=== PATIENT | male | born 1960 | race Caucasian/White ===

== ENCOUNTER 2024-04-02 08:13 | Day surgery (SDC) | payer OTHER, MEDICARE ==
[2024-03-30 08:33] LABS: Absolute Eosinophils 0.2 K/uL (0-0.5); Absolute Lymphocytes (CBC) 1.7 K/uL (0.7-4.9); Absolute Monocytes 0.7 K/uL (0.1-1.3); Absolute Neutrophil 4.9 K/uL (1.8-8.0); Basophils % 0.5 % (0-1.3); Eosinophils % 2.2 % (0-4.4); Hematocrit 43.5 % (39.6-49.0); Hemoglobin 14.8 g/dL (13.6-17.9); Lymphocytes % 22.3 % (15.3-44.8); MCH 28.7 pg (27.0-35.0); MCV 84.4 fL (80-100); MPV 9.2 fL (7.6-11.3); Monocytes % 9.2 % (3.3-12.3); Neutrophils % 65.8 % (41.7-73.7); Platelets 145 thou/uL (152-406); RBC Red Blood Cell Count 5.15 M/uL (4.33-5.43); Red Cell Distribution Width 14.2 % (12.1-15.2)
--- NOTE | 2024-03-30 09:05 | RAD REPORT ---
EXAMINATION: TWO VIEW CHEST XR CLINICAL INDICATION: Male, 63 years old. Hypertension. pre op for day surgery TECHNIQUE: 2 view radiographs of the chest were performed. COMPARISON: No prior exam. FINDINGS: The lungs are well inflated and clear. No pneumothorax or sizable effusion. The heart is normal in si ze. Mediastinal contours are unremarkable. IMPRESSION: No acute or significant abnormalities.
--- NOTE | 2024-03-30 14:10 | EKG ---
Test Date: 2024-03-30 Test Time: 08:19:39 Housing Project Manager: DEISI MEASUREMENT RESULTS: Intervals: Rate: 59 IA: 188 QRSD: 118 QT: 424 QTc: 419 [place]: P: 40 IA: 188 QRS: 25 T: 6 INTERPRETIVE STATEMENTS: Sinus bradycardia with sinus arrhythmia Incomplete left bundle branch block Borderline ECG No previous ECG available for comparison Electronically Signed On 03-30-24 14:09:22 CDT by Conrado Tompkins
[2024-04-02] MEDS: Ringers Lactate 1,000 ML IV ONE (08:45)
[2024-04-02] MEDS ORDERED: LIDOCAINE 1% MPF 5 ML VIAL ONE (08:47)
[2024-04-02] MEDS ORDERED: KETOROLAC 30 MG/ML INJ ONE (08:47)
[2024-04-02] MEDS ORDERED: FENTANYL CITR 100 MCG/2 ML ONE (08:48)
[2024-04-02] MEDS ORDERED: propofoL 200 MG/20 ML VIAL IV ONE (08:48)
[2024-04-02] MEDS ORDERED: MIDAZOLAM HCL 2 MG/2 ML INJ ONE (08:48)
[2024-04-02] MEDS ORDERED: SCOPOLAMINE HYDROBROMIDE PATCH TD ONE (09:11)
[2024-04-02] MEDS ORDERED: ONDANSETRON 4 MG/2 ML VIAL ONE (09:40)
[2024-04-02] MEDS ORDERED: dexAMETHasone 10 MG/ML VIAL ONE (09:50)
[2024-04-02] MEDS: CEFAZOLIN SODIUM 1 GM/VIAL ONE (09:50)
[2024-04-02] MEDS ORDERED: GLYCOPYRROLATE 0.2 MG/ML SYR ONE (10:00)
[2024-04-02] MEDS ORDERED: EPHEDRINE SULF 50 MG/ML VIAL ONE (10:15)
--- NOTE | 2024-04-02 10:24 | P.BOP ---
Preoperative diagnosis: infected upper back subQ mass 6x6 Postoperative diagnosis: same Primary procedure: Excisional biopsy of infected upper back subQ mass Estimated blood loss: <10cc Specimen: mass Findings: as above Anesthesia: General Complications: None Drain(s): Other Transferred to: Recovery Room Condition: Good
[2024-04-02] MEDS: CODEINE 30MG/APAP 300MG TAB ONE (11:53)
[2024-04-02 11:58] VITALS: BP 141/84; TEMP 98.4; O2SAT 95
--- NOTE | 2024-04-03 00:37 | OP ---
Date of Procedure: 04/02/2024 Surgeon: Steve Cuba MD Preoperative Diagnosis: Infected upper back subcutaneous mass. Initially, it was about 6 x 6 cm. N ow, it came almost down to 5 x 4 cm once the inflammation is gone. Postoperative Diagnosis: Infected upper back subcutaneous mass. Initially, it was about 6 x 6 cm. Now, it came almost down to 5 x 4 cm once the inflammation is gone. Procedure: Excisional biopsy of infected upper back subcutaneous mass. Estimated Blood Loss: Less than 10 cc. Specimen: Mass. Anesthesia: General plus local. Complications: None. Drains: None. Indications: This is a case of a male, who comes to us with an infected upper back mass, given antib iotics. Most of the redness went away. The area came back from 6 x 6 by about 5 x 5. He wants that area excised before this comes back once again, so the benefits , alternatives, and risks of excisio nal biopsy were fully explained, which include, but not limited to infection, bleeding, damage to adj acent structures, anesthesia complication, recurrence, MD, and even . He also understands this may not relieve any symptoms. He might need more than one surgical intervention. We discussed with him the pros and cons of closure. He has had recent infection in that area. If we find pus in this area, we might have to leave it open to close by secondary intention. If not, he wants me to just cl ose the area. He is going to continue the antibiotics. If by any chance, the infection recurred, th en he may have to do wet-to-dry dressing. He understood that plan. He wants that plan, so at the ar ea of concern was marked by me and the patient in the holding room. Description Of Procedure: The patient was brought to the operating room, placed in supine position. Anesthesia was done without complication. Back area was prepped and draped in sterile fashion. Loc al anesthesia was applied followed by sharp incision of the skin on the area of concern. The patient has a second mass in the back that will be done electively since this area is not infected right now . He does not want to mix both of them at this moment. Once we make a wedge incision of the skin in the area of concern, incision was carried down deep to the subcutaneous tissue. The mass was comple tely excised. Hemostasis was obtained. The area was profusely irrigated. We did not see any pus in that area. So, we proceeded to close the inner layers with 3-0 chromic and the skin with nylon. Sp onge count and instrument counts were correct. The patient tolerated the procedure well. Anesthetic was applied before closure. The patient was sent to recovery room in stable condition. EDYTA/MIRA Voice ID: [id number] Report ID: [id number]
--- NOTE | 2024-04-03 07:46 | DS ---
Date of Discharge: 04/02/2024 Diagnosis: Infected upper back subcutaneous mass. Procedure: Excisional biopsy of infected upper back subcutaneous mass. Condition: Stable. Disposition: Home. Activity: As tolerated. No heavy lifting. Discharge Instructions: Follow up in my office in 1 week. Call for appointment [phone]. Keep area dry for 48 hours, then clean with soap and water. Apply triple antibiotics and Band-Aid until seen in the office. EDYTA/MIRA Voice ID: [id number] Report ID: [id number]
== END 2024-04-02 11:50 | disposition home or self-care (01) ==
LOC: OR 08:13
PROVIDERS: ATTEND Surgery
PROC: 0JB70ZZ Excision of Back Subcutaneous Tissue and Fascia, Open Approach (ICD-10-PCS; principal; 2024-04-02 10:15)
DX: L72.0 Epidermal cyst (principal); L08.9 Local infection of the skin and subcutaneous tissue, unspecified; L03.312 Cellulitis of back [any part except buttock and flank]; L53.8 Other specified erythematous conditions
CPT/HCPCS: 11406; 93005; 85025; 80048; 36415; 88304; 71046; J2704; J2003; J2250; J3010; J1100; J2405; J7120; J0690